=== PATIENT | female | born 1985 | race Hispanic/Latino ===

== ENCOUNTER 2024-09-17 19:41 | Emergency (ER) | payer BC, OTHER ==
[~2024-09-17] VITALS: Ht 162.6 cm; Wt 75.7 kg
[2024-09-17] MEDS ORDERED: METFORMIN HCL1000 MG PO (20:06)
[2024-09-17] MEDS ORDERED: PRENATA CHEWAB1 EACH PO (20:06)
[2024-09-17 21:15] LABS: BASOPHILS 1.1 % (0-2); HEMATOCRIT 40.5 % (35.0-50.0); HEMOGLOBIN 13.7 g/dL (12.0-18.0); LYMPHOCYTES 26.3 % (24-44); MCH 28.9 (27-36); MCHC 33.7 g/dl (30-36); MCV 85.7 fl (81-99); MONOCYTES 8.2 % (0-12); NEUTROPHILS 61.4 % (39-80); PLATELET COUNT 266 K/uL (140-440); RBC 4.73 M/ul (4.3-5.7); RDW 15.3 (10.5-15.0)
[2024-09-17 21:49] LABS: BILIRUBIN, URINE NEGATIVE (negative); BLOOD/HGB, URINE MODERATE (Negative); KETONE, URINE NEGATIVE (Negative); LEUK ESTERASE, URINE NEGATIVE (negative); NITRITE, URINE NEGATIVE (negative)
[2024-09-17 21:52] LABS: ABO O; RH POSITIVE
[2024-09-17 21:53] LABS: ALBUMIN 3.7 g/dL (3.4-5.0); ANION GAP 13.9 (7-21); BILIRUBIN, TOTAL 0.2 mg/dL (0.2-1.0); BUN/CREATININE RATIO 9.58 (6.0-28.6); CALCIUM 8.9 mg/dL (8.5-10.1); CREATININE, SERUM 0.73 mg/dL (0.55-1.02); POTASSIUM 3.9 mmol/L (3.5-5.1); PROTEIN, TOTAL 7.4 g/dL (6.4-8.2)
[2024-09-17 21:59] LABS: BACTERIA, URINE 1+ /hpf (negative); CASTS, URINE NONE SEEN \\lpf; COLLECTION TYPE, URINE CLEAN CATCH; CRYSTALS, URINE NONE SEEN (0-1+); EPITHELIAL CELLS, URINE SQUAMOUS 1+ /lpf (0-1+); REFLEX CULTURE, URINE No (No)
[2024-09-17 23:30] VITALS: BP 122/77
[2024-09-18] MEDS ORDERED: CEPHALEXIN500 M1 PO (08:17)
== END 2024-09-17 23:30 | disposition home or self-care (01) ==
LOC: ED 19:41
PROVIDERS: Family Medicine
DX: O20.0 Threatened abortion (principal); Z3A.01 Less than 8 weeks gestation of pregnancy; Z79.4 Long term (current) use of insulin
CPT/HCPCS: 36415; 76801; 76817; 80053; 81001; 84702; 85025; 86900; 86901; 99284-25